=== PATIENT | male | born 1960 | race American Indian/Alaskan Native ===

== ENCOUNTER 2019-03-21 10:00 | Emergency (ER) | payer MEDICARE ==
[2019-03-21 10:07] VITALS: BP 156/86
[2019-03-21] MEDS ORDERED: TORADOL IM ONE (10:56)
--- NOTE | 2019-03-21 10:59 | Emergency Department Report ---
ED General Adult HPI - General Chief complaint: Pain General Stated complaint: MIGRANE/CHESTWALL/NECK/BACK PAIN Time Seen by Provider: 03/21/19 10:50 Source: patient Mode of arrival: Ambulatory Limitations: No Limitations - History of Present Illness Initial comments: Patient is 58 years old male with history of chronic pain secondary to osteoarthritis per patient report. Patient presented to the ER complaining of generalized joint pain. Patient stated that he take Percocet 10 mg but unfortunately he left his medication in [facility] when he went to visit his sister. Patient is nontoxic and in no acute distress. And denied any other complaint. - Related Data Home Medications Medication Instructions Recorded Confirmed Last Taken Ambien 1 tab PO QHS 11/21/14 11/23/14 11/22/14 Amlodipine-Valsartan 5-160 mg 1 tab PO DAILY 11/21/14 11/23/14 11/23/14 Atenolol 1 tab PO DAILY 11/21/14 11/23/14 11/23/14 DULoxetine 1 tab PO DAILY 11/21/14 11/23/14 11/22/14 Morphine 60 mg PO PRN PRN 11/21/14 11/23/14 11/22/14 Ranitidine 300 mg PO DAILY 11/21/14 11/23/14 11/22/14 oxyCODONE /ACETAMINOPHEN 1 tab PO PRN PRN 11/21/14 11/23/14 11/22/14 Allergies Allergy/AdvReac Type Severity Reaction Status Date / Time Penicillins Allergy Rash Verified 08/26/14 11:04 ED Review of Systems ROS: Stated complaint: MIGRANE/CHESTWALL/NECK/BACK PAIN Other details as noted in HPI Comment: All other systems reviewed and negative Constitutional: denies: chills, fever Respiratory: denies: cough Cardiovascular: denies: chest pain, palpitations Gastrointestinal: denies: abdominal pain, nausea Musculoskeletal: arthralgia. denies: joint swelling ED Past Medical Hx - Past Medical History Hx Hypertension: Yes Hx Arthritis: Yes Hx Asthma: No Hx COPD: No Hx Tuberculosis: No Hx HIV: No Additional medical history: GOUT - Surgical History Past Surgical History?: Yes Additional Surgical History: RIGHT SHOULDER ARTHROSCOPY - Social History Smoking Status: Never Smoker Substance Use Type: None - Medications Home Medications: Home Medications Medication Instructions Recorded Confirmed Last Taken Type Ambien 1 tab PO QHS 11/21/14 11/23/14 11/22/14 History Amlodipine-Valsartan 5-160 mg 1 tab PO DAILY 11/21/14 11/23/14 11/23/14 History Atenolol 1 tab PO DAILY 11/21/14 11/23/14 11/23/14 History DULoxetine 1 tab PO DAILY 11/21/14 11/23/14 11/22/14 History Morphine 60 mg PO PRN PRN 11/21/14 11/23/14 11/22/14 History Ranitidine 300 mg PO DAILY 11/21/14 11/23/14 11/22/14 History oxyCODONE /ACETAMINOPHEN 1 tab PO PRN PRN 11/21/14 11/23/14 11/22/14 History ED Physical Exam - General Limitations: No Limitations General appearance: alert, in no apparent distress - Head Head exam: Present: atraumatic, normocephalic, normal inspection - Eye Eye exam: Present: normal appearance - ENT ENT exam: Present: normal exam - Respiratory Respiratory exam: Present: normal lung sounds bilaterally - Cardiovascular Cardiovascular Exam: Present: normal heart sounds - GI/Abdominal GI/Abdominal exam: Present: soft, normal bowel sounds. Absent: distended, tenderness, guarding, rebound, rigid - Extremities Exam Extremities exam: Present: normal inspection, full ROM, normal capillary refill. Absent: tenderness, calf tenderness - Back Exam Back exam: Present: normal inspection, full ROM. Absent: CVA tenderness (R), CVA tenderness (L), muscle spasm - Neurological Exam Neurological exam: Present: alert, oriented X3, CN II-XII intact, normal gait - Skin Skin exam: Present: warm, intact, normal color ED Course Vital Signs 03/21/19 10:05 Temperature 97.9 F Pulse Rate 82 Respiratory 16 Rate Blood Pressure 156/86 O2 Sat by Pulse 96 Oximetry Critical care attestation.: If time is entered above; I have spent that time in minutes in the direct care of this critically ill patient, excluding procedure time. ED Disposition Clinical Impression: Osteoarthritis Disposition: -01 TO HOME OR SELFCARE Is pt being admited?: No Condition: Stable Instructions: Chronic Pain (ED) Referrals: PRIMARY CARE, [Referring] - 3-5 Days
== END 2019-03-21 11:45 | disposition home or self-care (01) ==
LOC: ED 10:00
DX: M19.90 Unspecified osteoarthritis, unspecified site (principal); I10 Essential (primary) hypertension; Z98.890 Other specified postprocedural states; Z79.899 Other long term (current) drug therapy; Z88.0 Allergy status to penicillin
CPT/HCPCS: 93005; 93010; 96372; 99282; J1885

== ENCOUNTER 2019-05-16 09:41 | Emergency (ER) | payer MEDICARE ==
[2019-05-16 09:48] VITALS: BP 148/90
--- NOTE | 2019-05-16 11:18 | Emergency Department Report ---
Upper Extremity - HPI Chief Complaint: Extremity Problem,Nontraumatic Stated Complaint: R ARM/ELBOW PAIN/SWOLLEN Time Seen by Provider: 05/16/19 11:07 Upper Extremity: Right Elbow Occurred When: 3 Days Mechanism: Other (gout attack) Symptoms: Yes Pain with Movement, Yes Limited Range of Movement, Yes Swelling, No Deformity, No Numbness, No Weakness, No Bruising/Ecchymosis, No Laceration or Abrasion Other History: Mr. Foley is a 58 yo male with hx of gout and lumbar DDD who presents with right elbow pain and redness. No trauma. Has gout in several joints in the past. Moderately severe pain. Takes percocet 3 times a day for chronic back escamilla. Limited range of motion in the right elbow. ED Review of Systems ROS: Stated complaint: R ARM/ELBOW PAIN/SWOLLEN Other details as noted in HPI Constitutional: denies: fever, malaise Respiratory: denies: shortness of breath Musculoskeletal: joint swelling, arthralgia Skin: rash, lesions, change in color ED Past Medical Hx - Past Medical History Hx Hypertension: Yes Hx Arthritis: Yes Hx Asthma: No Hx COPD: No Hx Tuberculosis: No Hx HIV: No Additional medical history: GOUT - Surgical History Additional Surgical History: RIGHT SHOULDER ARTHROSCOPY - Social History Smoking Status: Never Smoker Substance Use Type: Alcohol - Medications Home Medications: Home Medications Medication Instructions Recorded Confirmed Last Taken Type Ambien 1 tab PO QHS 11/21/14 11/23/14 11/22/14 History Amlodipine-Valsartan 5-160 mg 1 tab PO DAILY 11/21/14 11/23/14 11/23/14 History Atenolol 1 tab PO DAILY 11/21/14 11/23/14 11/23/14 History DULoxetine 1 tab PO DAILY 11/21/14 11/23/14 11/22/14 History Morphine 60 mg PO PRN PRN 11/21/14 11/23/14 11/22/14 History Ranitidine 300 mg PO DAILY 11/21/14 11/23/14 11/22/14 History oxyCODONE /ACETAMINOPHEN 1 tab PO PRN PRN 11/21/14 11/23/14 11/22/14 History Ketorolac [Toradol] 10 mg PO Q6H PRN #20 tablet 03/21/19 Unknown Rx Colchicine 0.6 mg PO Q2H #3 capsule 05/16/19 Unknown Rx Indomethacin 50 mg PO TID 4 Days #12 capsule 05/16/19 Unknown Rx Upper Extremity Exam - Exam General: Vital signs noted. No distress. Alert and acting appropriately. Arm Exam: No Arm/Humerus Tenderness, No Arm Deformity Elbow: Yes Elbow Tenderness, No Normal Range of Motion in Elbow (flexed, limited ROM, mild erythema lateral region mild edema), No Elbow Deformity Forearm: No Forearm Tenderness, No Forearm Deformity, No Pain with Pronation, No Pain with Supination Wrist: Yes Normal ROM in Wrist, No Wrist Tenderness, No Wrist Deformity, No Snuffbox Tenderness, No Pain with Axial Thumb Compression Hand: Yes Normal ROM in Digit(s), No Hand Tenderness, No Hand Deformity, No Digit Tenderness, No Digit(s) Deformity, No Tendon Dysfunction CMS Exam: Yes Normal Distal Pulses, Yes Normal Capillary Refill, Yes Normal Distal Sensation, No Broken Skin ED Course Vital Signs 05/16/19 09:46 Temperature 97.8 F Pulse Rate 75 Respiratory 20 Rate Blood Pressure 148/90 ED Medical Decision Making - Medical Decision Making Right elbow pain swelling and inflammation suspicious for gout exacerbation: Prescribed indomethacin, colchicine. Given 1 dose Percocet and emergency department. Family encouraged to follow-up with PCP this week. Will need to ensure that this presentation is not septic arthritis. Critical care attestation.: If time is entered above; I have spent that time in minutes in the direct care of this critically ill patient, excluding procedure time. ED Disposition Clinical Impression: Gout of elbow Disposition: DC-01 TO HOME OR SELFCARE Is pt being admited?: No Does the pt Need Aspirin: No Condition: Stable Instructions: Acute Gouty Arthritis (ED) Prescriptions: Colchicine 0.6 mg PO Q2H #3 capsule Indomethacin 50 mg PO TID 4 Days #12 capsule Referrals: RIZWANA RAMSAY MD [Primary Care Provider] - 2-3 Days
[2019-05-16] MEDS ORDERED: PERCOCET 5/325 PO ONE (11:19)
[2019-05-16] MEDS ORDERED: TORADOL IM ONE (11:19)
== END 2019-05-16 11:39 | disposition home or self-care (01) ==
LOC: ED 09:41
DX: M10.021 Idiopathic gout, right elbow (principal); I10 Essential (primary) hypertension; M19.90 Unspecified osteoarthritis, unspecified site; Z79.899 Other long term (current) drug therapy; Z88.0 Allergy status to penicillin
CPT/HCPCS: 96372; 99282; J1885

== ENCOUNTER 2020-08-14 11:55 | Emergency (ER) | payer MEDICARE ==
[2020-08-14 12:07] VITALS: BP 158/83
--- NOTE | 2020-08-14 12:18 | Emergency Department Report ---
Chief Complaint: Pain General Stated Complaint: SEVERE PAIN/RT LEG PAIN Time Seen by Provider: 08/14/20 12:14 - HPI History of Present Illness: pt has a hx of degenerative arthritis. states he sees a pain specialist and last saw them on 08/04/2020. he denies any fall or injury. he denies any numbness, weakness, no bowel or bladder incontinence. he states that he needs a "prescription for oxycodone" for chronic pain. vss on exam: Non toxic appearing, no acute distress atraumatic, normocephalic normal appearance of the eyes, EOMI, no periorbital edema or ecchymosis moist mucus membranes no respiratory distress, no accessory muscle use A&O x4, no focal neuro deficit, pt walks with a cane chronically Patient presents for chronic pain and wants a refill of his narcotics Patient is currently wearing a buprenorphine patch and he was just given 4 patches at the beginning of this month which is supposed to last him for 30 days He just recently saw his pain specialist on 08/04/2020 Advised patient that the hospital policy is that they do not write narcotics for chronic pain and do not treat chronic pain at this facility Advised patient to follow-up with his pain specialist and his primary care doctor pt is on a pain contract with his specialist Discussed strict return precautions Medical screening performed and there is no threat to life or limb at this time - Exam Vital Signs: Vital Signs 08/14/20 12:06 Temperature 98.0 F Pulse Rate 72 Respiratory 18 Rate Blood Pressure 158/83 O2 Sat by Pulse 95 Oximetry MSE screening note: Focused history and physical exam performed. ED Disposition for MSE Clinical Impression: Chronic pain Qualifiers: Chronic pain type: other chronic pain Qualified Code(s): G89.29 - Other chronic pain Disposition: Z-07 MED SCREENING EXAM-LEFT Is pt being admited?: No Does the pt Need Aspirin: No Condition: Stable Instructions: Chronic Pain, Adult Additional Instructions: may alternate tylenol or ibuprofen as needed for discomfort. may use ice pack, heating pad, rest, epsom salt bath. follow up with a primary care doctor. follow up with a pain specialist. return to the emergency room for any new or worsening symptoms. Referrals: your, pain specialist [Other] - 2-3 Days Time of Disposition: 12:17 Print Language: EQUATORIAL GUINEAN
== END 2020-08-14 12:42 | disposition left against medical advice (07) ==
LOC: ED 11:55
DX: M79.604 Pain in right leg (principal); G89.29 Other chronic pain; Z53.21 Procedure and treatment not carried out due to patient leaving prior to being seen by health care provider